=== PATIENT | female | born 1955 | race Caucasian/White ===

== ENCOUNTER → 2018-05-08 | Outpatient (CLI) | payer BC, OTHER ==
--- NOTE | 2018-05-08 12:04 | PCVCIMAG ---
APPROVED REPORT Study performed: 05/08/2018 09:28:16 EXAM: Comprehensive 2D, Doppler, and color-flow Echocardiogram Patient Location: Echo lab Status: routine BSA: 1.95 HR: 88 bpmBP: 138/88 mmHg Rhythm: NSR Other Information Study Quality: Good Risk Factors: Cardiac Risk Factors: Hyperlipidemia Indications Hyperlipidemia. [place] Echo Enhancing Agent Indication: Rule out Shunt Agent(s) / Amount(s) Used: Agitated Saline cc 2D Dimensions IVSd: 9.83 (7-11mm)LVOT Diam: 20.66 (18-24mm) LVDd: 43.59 mm PWd: 9.44 (7-11mm)Ascending Ao: 37.22 (22-36mm) LVDs: 34.54 (25-40mm) Left Atrium: 35.54 (27-40mm) Aortic Root: 26.64 mm LV Single Plane 4CH: 59.86 % Volumes Left Atrial Volume (Systole) Single Plane 4CH: 60.16 mLSingle Plane 2CH: 45.07 mL LA ESV Index: 29.00 mL/m2 Aortic Valve AoV Peak Abdias.: 1.78 m/s AO Peak Gr.: 13.48 mmHgLVOT Max P.57 mmHg LVOT Max V: 1.07 m/s NEIL Vmax: 2.02 cm2 Mitral Valve E/A Ratio: 0.7 MV Decel. Time: 198.80 ms MV E Max Abdias.: 0.56 m/s MV A Abdias.: 0.86 m/s IVRT: 101.50 ms TDI E/Lateral E': 5.60E/Medial E': 5.09 Medial E' Abdias.: 0.11 m/s Lateral E' Abdias.: 0.10 m/s Pulmonary Valve PV Peak Gr.: 2.98 mmHg Pulmonary Vein P Vein S: 0.81 m/sP Vein A: 0.39 m/s P Vein D: 0.35 m/sP Vein A Dur.: 76.1 msec P Vein S/D Ratio: 2.31 Tricuspid Valve TR Peak Abdias.: 2.26 m/s TR Peak Gr.: 20.50 mmHg Left Ventricle The left ventricle is normal size. There is normal LV segmental wall motion. There is normal left ventricular wall thickness. Left ventricular systolic function is normal. The left ventricular ejection fraction is within the normal range. LVEF is 55-60%. Mild diastolic dysfunction is present (impaired relaxation pattern). Right Ventricle The right ventricle is normal size. The right ventricular systolic function is normal. Atria The left atrium size is normal. Aneurysmal atrial septum. Small amount of shunting by contrast bubble injection consistent with PFO The right atrium size is normal. Aortic Valve The aortic valve is mildly sclerotic No aortic regurgitation is present. There is no aortic valvular stenosis. Mitral Valve The mitral valve is normal in structure. There is no mitral valve regurgitation noted. No evidence of mitral valve stenosis. Tricuspid Valve The tricuspid valve is normal in structure. Trace tricuspid regurgitation. Pulmonic Valve The pulmonary valve is normal in structure. There is no pulmonic valvular regurgitation. Great Vessels The aortic root is normal in size. IVC is normal in size and collapses >50% with inspiration. Pericardium There is no pericardial effusion. <Conclusion> Left ventricular systolic function is normal. There is normal LV segmental wall motion. EF 60% Aneurysmal atrial septum. Small amount of shunting by contrast bubble injection consistent with PFO The aortic valve is mildly sclerotic. No aortic regurgitation or stenosis The mitral valve is normal in structure. No mitral valve regurgitation Pulmonary artery pressure could not be reliably ascertained. There is no pericardial effusion.
--- NOTE | 2018-05-08 14:48 | PCVCIMAG ---
EXAM: AORTOILIAC DUPLEX INDICATION: Peripheral arterial disease FINDINGS: AORTA: Suprarenal aorta measures maximum diameter of cm. 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 The juxtarenal aorta measures maximum diameter of 2.3 x 4.0 cm. No aortic stenosis. RIGHT COMMON ILIAC ARTERY: Maximum diameter is 1.6 cm. No significant stenosis. RIGHT EXTERNAL ILIAC ARTERY: No significant stenosis. LEFT COMMON ILIAC ARTERY: Maximum diameter is 1.2 cm. No significant stenosis. LEFT EXTERNAL ILIAC ARTERY: No significant stenosis. 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 No prior studies film for comparison. If needed CTA of the abdomen and pelvis could be done for further delineation. LOC:[place] [id number]
== END | disposition home or self-care (01) ==
LOC: PCVCIMAG 09:36
PROVIDERS: ATTEND Internal Medicine
DX: I71.4 Abdominal aortic aneurysm, without rupture (principal); R93.1 Abnormal findings on diagnostic imaging of heart and coronary circulation; I74.3 Embolism and thrombosis of arteries of the lower extremities; I74.9 Embolism and thrombosis of unspecified artery; E78.5 Hyperlipidemia, unspecified; I73.9 Peripheral vascular disease, unspecified
CPT/HCPCS: 93306; 93978